=== PATIENT | female | born 1990 | race Caucasian/White ===

== ENCOUNTER 2018-12-21 22:17 | Inpatient (IN) | payer MEDICAID, OTHER ==
[~2018-12-21] VITALS: Ht 160 cm; Wt 59.1 kg
[2018-12-21] MEDS ORDERED: morphine 4 MG/ML inj SYRINge IM ONE (23:15)
[2018-12-21 23:40] LABS: BASOPHILS # (AUTO) 0.1 X10'3 (0-0.2); BASOPHILS % (AUTO) 0.5 % (0-1); EOSINOPHILS # (AUTO) 0.1 X10'3 (0-0.9); EOSINOPHILS % (AUTO) 1.1 % (0-6); HEMATOCRIT 35.3 % (35.0-45.0); HEMOGLOBIN 11.9 g/dl (12.0-16.0); LYMPHOCYTES # (AUTO) 2.2 X10'3 (1.1-4.8); LYMPHOCYTES % (AUTO) 19.5 % (21-51); MEAN CORPUSCULAR HEMOGLOBIN 29.2 PG (27.0-31.0); MEAN CORPUSCULAR HGB CONC 33.8 g/dL (33.0-36.5); MEAN CORPUSCULAR VOLUME 86.5 FL (78-98); MEAN PLATELET VOLUME 8.4 FL (7.4-10.4); MONOCYTES # (AUTO) 1.2 X10'3 (0-0.9); MONOCYTES % (AUTO) 10.9 % (2-12); NEUTROPHILS # (AUTO) 7.6 X10'3 (1.8-7.7); PLATELET COUNT 297 X10'3 (140-440); RED BLOOD COUNT 4.08 X10'6 (4.20-5.60); RED CELL DISTRIBUTION WIDTH 12.9 % (11.5-14.5); WHITE BLOOD COUNT 11.2 X10'3 (4.5-11.0)
--- NOTE | 2018-12-21 23:53 | NUR ---
CONTACTED SYDNI CASE #[id number]
[2018-12-21 23:55] LABS: ALANINE AMINOTRANSFERASE 30 U/L (12-78); ALBUMIN 3.1 G/DL (3.4-5.0); ALBUMIN/GLOBULIN RATIO 0.8 (1.1-1.5); ALKALINE PHOSPHATASE 82 IU/L (46-116); ANION GAP 8 (8-16); ASPARTATE AMINO TRANSFERASE 19 U/L (10-37); BILIRUBIN,TOTAL 0.8 MG/DL (0.1-1.0); BLOOD UREA NITROGEN 9 MG/DL (7-18); CALCIUM 8.3 MG/DL (8.5-10.1); CHLORIDE 102 MMOL/L (99-107); CREATININE 0.82 MG/DL (0.40-0.90); GLUCOSE 107 MG/DL (70-104); POTASSIUM 3.5 MMOL/L (3.5-5.1); SODIUM 138 MMOL/L (135-145); TOTAL CARBON DIOXIDE 28.5 MMOL/L (24-32); TOTAL PROTEIN 7.2 G/DL (6.4-8.2); eGFR 82 ML/MIN
--- NOTE | 2018-12-22 00:17 | NUR ---
[facility] AT BEDSIDE
[2018-12-22] MEDS ORDERED: clindamycin 600mg/D5W 50ml 50 ML IV ONE (00:40)
[2018-12-22] MEDS ORDERED: normal saline 1000ML IV soln IVB ONE (00:40)
[2018-12-22] MEDS ORDERED: TETanus/Pertussis (Acell)/Diphther VAC/PF (Tdap-Adult) 0.5ml syringe IM ONE (00:40)
[2018-12-22] MEDS ORDERED: ciprofloxacin/D5W 200mg/100mL 100 ML IV SCH (00:42)
[2018-12-22] MEDS ORDERED: morphine 2 MG/ML inj. syringe IV PRN ×2 (00:55)
[2018-12-22] MEDS ORDERED: magnesium hydroxide 30ml (MOM) UD suspension PO PRN (00:55)
[2018-12-22] MEDS ORDERED: ondansetron/PF 4mg/2ml inj IV PRN (00:55)
[2018-12-22] MEDS ORDERED: acetaminophen 325mg tablet PO PRN (00:55)
[2018-12-22] MEDS ORDERED: mag hydrox/Alum hydrox/simeth 30ml oral suspension PO PRN (00:55)
[2018-12-22] MEDS ORDERED: NO HOME MEDS (01:18)
--- NOTE | 2018-12-22 01:55 | NUR ---
Patient in room [facility]. I have received report from ADRIA White and had the opportunity to ask questions and assume patient care.
[2018-12-22] MEDS: normal saline 1000ml 1,000 ML IV SCH ×3 (02:08→17:54)
[2018-12-22 02:20] VITALS: BP 100/64
--- NOTE | 2018-12-22 06:33 | NUR ---
Problems reprioritized. Patient report given, questions answered & plan of care reviewed with ADRIA Kitchen.
[2018-12-22] MEDS: clindamycin 600mg/D5W 50ml 50 ML IV SCH ×4 (06:38→23:43)
--- NOTE | 2018-12-22 06:42 | NUR ---
Patient in room [facility]. I have received report from NARCISA COVINGTON and had the opportunity to ask questions and assume patient care.
[2018-12-22 07:00] VITALS: BP_SYST 122; BP_SYST 130; BP_DIAS 57; BP_DIAS 73
[2018-12-22] MEDS: ciprofloxacin lact 400MG/200ML 200 ML IV SCH ×2 (09:13→19:41)
[2018-12-22] MEDS ORDERED: iohexol 300mg/ml 100ml inj. ONE (10:54)
[2018-12-22 11:00] VITALS: BP 123/65
[2018-12-22] MEDS ORDERED: potassium CL 10mEq/100ml bag 100 ML IV PRN (14:55)
[2018-12-22] MEDS ORDERED: magnesium 2GM in 50ml NS 50 ML IV PRN (14:55)
[2018-12-22] MEDS ORDERED: potassium Cl 20 mEq SR tablet PO PRN (14:55)
[2018-12-22] MEDS ORDERED: magnesium Cl slow-release 64mg tablet PO PRN (14:55)
--- NOTE | 2018-12-22 16:18 | NUR ---
Pt discharged to home, pt changed her mind about going to [facility] for rehab. She is home sick. Pt is A&O, in no evident distress or pain. IV cath DC intact, wound with maira open to air. Pt independent with care to her ileostomy. Her helped her pack all of her personal belonging and her mcginnis. Pt asked if she needed states she needed a walker but she said she already has one. She was wheeled to the front in a where her picked her up. Addendum: 12/22/18 at 1624 by Fidelina Lin RN notes on wrong chart.
[2018-12-22 18:00] VITALS: BP 110/47
--- NOTE | 2018-12-22 18:35 | NUR ---
Problems reprioritized. Patient report given, questions answered & plan of care reviewed with Krishna COVINGTON.
--- NOTE | 2018-12-22 18:36 | NUR ---
Patient in room [facility]. I have received report from ADRIA Kitchen and had the opportunity to ask questions and assume patient care.
[2018-12-23 00:25] VITALS: BP 110/53
[2018-12-23] MEDS: clindamycin 600mg/D5W 50ml 50 ML IV SCH ×3 (05:05→17:23)
[2018-12-23] MEDS: normal saline 1000ml 1,000 ML IV SCH ×3 (05:08→20:06)
--- NOTE | 2018-12-23 06:11 | NUR ---
Problems reprioritized. Patient report given, questions answered & plan of care reviewed with ADRIA Friend.
[2018-12-23 06:31] LABS: BASOPHILS % (AUTO) 0.6 % (0-1); EOSINOPHILS # (AUTO) 0.1 X10'3 (0-0.9); EOSINOPHILS % (AUTO) 1.6 % (0-6); HEMATOCRIT 37.6 % (35.0-45.0); HEMOGLOBIN 12.7 g/dl (12.0-16.0); LYMPHOCYTES # (AUTO) 2.1 X10'3 (1.1-4.8); LYMPHOCYTES % (AUTO) 25.1 % (21-51); MEAN CORPUSCULAR HEMOGLOBIN 29.7 PG (27.0-31.0); MEAN CORPUSCULAR HGB CONC 33.7 g/dL (33.0-36.5); MEAN CORPUSCULAR VOLUME 88.1 FL (78-98); MEAN PLATELET VOLUME 9.2 FL (7.4-10.4); MONOCYTES # (AUTO) 0.8 X10'3 (0-0.9); MONOCYTES % (AUTO) 9.4 % (2-12); NEUTROPHILS # (AUTO) 5.3 X10'3 (1.8-7.7); NEUTROPHILS % (AUTO) 63.3 % (42-75); PLATELET COUNT 251 X10'3 (140-440); RED BLOOD COUNT 4.26 X10'6 (4.20-5.60); RED CELL DISTRIBUTION WIDTH 13.4 % (11.5-14.5); WHITE BLOOD COUNT 8.3 X10'3 (4.5-11.0)
[2018-12-23 06:56] LABS: ALANINE AMINOTRANSFERASE 24 U/L (12-78); ALBUMIN 2.7 G/DL (3.4-5.0); ALBUMIN/GLOBULIN RATIO 0.6 (1.1-1.5); ALKALINE PHOSPHATASE 68 IU/L (46-116); ANION GAP 10 (8-16); ASPARTATE AMINO TRANSFERASE 19 U/L (10-37); BILIRUBIN,TOTAL 0.6 MG/DL (0.1-1.0); BLOOD UREA NITROGEN 4 MG/DL (7-18); CALCIUM 8.3 MG/DL (8.5-10.1); CHLORIDE 107 MMOL/L (99-107); CREATININE 0.67 MG/DL (0.40-0.90); GLUCOSE 95 MG/DL (70-104); POTASSIUM 3.7 MMOL/L (3.5-5.1); SODIUM 141 MMOL/L (135-145); TOTAL CARBON DIOXIDE 23.9 MMOL/L (24-32); TOTAL PROTEIN 6.9 G/DL (6.4-8.2); eGFR > 90 ML/MIN
[2018-12-23 07:20] VITALS: BP 90/50
[2018-12-23] MEDS: ciprofloxacin lact 400MG/200ML 200 ML IV SCH ×2 (07:43→19:54)
[2018-12-23 11:27] VITALS: BP 107/50
[2018-12-23 18:00] VITALS: BP 97/56
--- NOTE | 2018-12-23 18:11 | NUR ---
Problems reprioritized. Patient report given, questions answered & plan of care reviewed with ADRIA Keller.
--- NOTE | 2018-12-23 18:12 | NUR ---
Patient in room [facility]. I have received report from ADRIA Friend and had the opportunity to ask questions and assume patient care.
[2018-12-23] MEDS: lactobacillus rhamnosus 10,000 MMU CELLS/CAPSULE PO SCH (19:54)
[2018-12-24] VITALS: BP 125/61
[2018-12-24] MEDS: clindamycin 600mg/D5W 50ml 50 ML IV SCH ×3 (00:36→12:00)
[2018-12-24 05:48] LABS: BASOPHILS % (AUTO) 0.5 % (0-1); EOSINOPHILS # (AUTO) 0.2 X10'3 (0-0.9); EOSINOPHILS % (AUTO) 2.6 % (0-6); HEMATOCRIT 39.2 % (35.0-45.0); HEMOGLOBIN 13.1 g/dl (12.0-16.0); LYMPHOCYTES # (AUTO) 1.7 X10'3 (1.1-4.8); LYMPHOCYTES % (AUTO) 21.6 % (21-51); MEAN CORPUSCULAR HEMOGLOBIN 29.1 PG (27.0-31.0); MEAN CORPUSCULAR HGB CONC 33.4 g/dL (33.0-36.5); MEAN CORPUSCULAR VOLUME 87.1 FL (78-98); MONOCYTES # (AUTO) 0.7 X10'3 (0-0.9); NEUTROPHILS # (AUTO) 5.2 X10'3 (1.8-7.7); NEUTROPHILS % (AUTO) 66.3 % (42-75); PLATELET COUNT 318 X10'3 (140-440); RED CELL DISTRIBUTION WIDTH 13.2 % (11.5-14.5); WHITE BLOOD COUNT 7.9 X10'3 (4.5-11.0)
--- NOTE | 2018-12-24 06:06 | NUR ---
Problems reprioritized. Patient report given, questions answered & plan of care reviewed with ADRIA Lui.
[2018-12-24 06:12] LABS: ALANINE AMINOTRANSFERASE 27 U/L (12-78); ALBUMIN 2.8 G/DL (3.4-5.0); ALBUMIN/GLOBULIN RATIO 0.6 (1.1-1.5); ALKALINE PHOSPHATASE 77 IU/L (46-116); ANION GAP 10 (8-16); ASPARTATE AMINO TRANSFERASE 23 U/L (10-37); BILIRUBIN,TOTAL 0.2 MG/DL (0.1-1.0); BLOOD UREA NITROGEN 8 MG/DL (7-18); BUN/CREATININE RATIO 9.9 (6.6-38.0); CHLORIDE 108 MMOL/L (99-107); CREATININE 0.81 MG/DL (0.40-0.90); GLUCOSE 94 MG/DL (70-104); POTASSIUM 4.1 MMOL/L (3.5-5.1); SODIUM 143 MMOL/L (135-145); TOTAL CARBON DIOXIDE 24.9 MMOL/L (24-32); TOTAL PROTEIN 7.3 G/DL (6.4-8.2); eGFR 84 ML/MIN
--- NOTE | 2018-12-24 06:40 | NUR ---
Patient in room [facility]. I have received report from ADRIA BREWSTER and had the opportunity to ask questions and assume patient care.
[2018-12-24] MEDS: ciprofloxacin lact 400MG/200ML 200 ML IV SCH (07:09)
[2018-12-24] MEDS: lactobacillus rhamnosus 10,000 MMU CELLS/CAPSULE PO SCH (07:09)
[2018-12-24 07:16] VITALS: BP 120/60
[2018-12-24 11:25] VITALS: BP 132/94
[2018-12-24] MEDS ORDERED: LEVO500T89 PO (11:37)
--- NOTE | 2018-12-24 12:48 | NUR ---
PATIENT ALERT AND ORIENTED X4 SITTING IN CHAIR AT BEDSIDE. DISCUSSED WITH PATIENT DISCHARGE TEACHING AND PRESCRIPTION, WELL WOUND CARE TEACHING. PATIENT VERBALIZED UNDERSTANDING OF TEACHING. PRESCRIPTION ESCRIPT SEND TO JOHAN IN LAY. DRESSING CHANGE MATERIAL GIVEN TO PATIENT; BANDAIDS, GAUZE AND NEOSPORIN. PATIENT IS READY FOR DISCHARGE AND IS WANTING TO FINISH HER LUNCH BEFORE LEAVING. ALSO, PATIENT IS WAITING FOR BROWN PAPER BAG LUNCH PATIENT IS HOMELESS. PATIENT DOES REFUSE CLOTHING.
--- NOTE | 2018-12-24 13:04 | NUR ---
BROWN PAPER BAG LUNCH GIVEN TO PATIENT. PATIENT DC'D WITH ALL PERSONAL BELONGINGS. PATIENT WAS ESCORTED OUT IN WHEELCHAIR ACCOMPANIED BY X1 STAFF.
--- NOTE | 2018-12-24 13:27 | NUR ---
PATIENT'S DISCHARGE PACKET WAS GIVEN TO PATIENT AFTER DISCHARGE TEACHING WAS COMPLETED. PATIENT STATED SHE WOULD PLACE IN HER BAG. AFTER PATIENT DISCHARGED, PATIENT'S DISCHARGE PACKET WAS FOUND IN THE BOTTOM DRAWER OF BEDSIDE DRESSER.
== END 2018-12-24 13:06 | disposition home or self-care (01) | DRG 605 ==
LOC: ER 22:18 → SUR 3N 12-22 00:52 → EDBEDREQTM 12-22 01:16 → EDBEDREQ 12-22 01:17
PROVIDERS: ADMIT Internal Medicine; ATTEND Family Medicine
PROC: BP2J1ZZ Computerized Tomography (CT Scan) of Right Forearm using Low Osmolar Contrast (ICD-10-PCS; principal; 2018-12-22)
DX: S51.811A Laceration without foreign body of right forearm, initial encounter (principal); L03.113 Cellulitis of right upper limb; F15.10 Other stimulant abuse, uncomplicated; B95.4 Other streptococcus as the cause of diseases classified elsewhere; F17.200 Nicotine dependence, unspecified, uncomplicated; F11.90 Opioid use, unspecified, uncomplicated; X99.8XXA Assault by other sharp object, initial encounter; Z59.0 Homelessness; Y93.89 Activity, other specified; Y92.89 Other specified places as the place of occurrence of the external cause; Y99.8 Other external cause status; Z88.1 Allergy status to other antibiotic agents; Z88.5 Allergy status to narcotic agent
CPT/HCPCS: 36415; 73090; 73201; 80053; 83605; 83874; 84145; 85025; 87040; 87070; 87075; 87077; 87081; 87186; 96372; 99285; G0378; J0744; J2270; J3490; J7030; Q9967